=== PATIENT | female | born 1970 | race Caucasian/White ===

== ENCOUNTER 2017-09-18 17:20 | Inpatient (IN) | payer BC, MEDICAID ==
[2017-09-18 18:24] LABS: ABS Basophils 0.1 10^3/ul (0-0.2); ABS Eosinophils 0.2 10^3/ul (0-0.6); ABS Lymphocytes 1.7 10^3/ul (1.0-4.8); ABS Monocytes 0.6 10^3/ul (0-0.8); ABS Neutrophils 6.3 10^3/ul (1.5-7.7); ABS Nucleated RBC 0 10^3/ul; Eosinophil % 1.9 % (0-6); Hematocrit 40 % (35-47); Hemoglobin 13.1 g/dl (12.0-16.0); Lymphocyte % 19.5 % (25-47); Mean Corpuscular HGB Conc 33 g/dl (31-36); Mean Corpuscular Hemoglobin 29 pg (27-31); Mean Corpuscular Volume 91 fL (80-97); Mean Platelet Volume 9.4 um3 (7.4-10.4); Nucleated Red Blood Cells % 0.1; Platelet Count 303 10^3/ul (150-450); Red Blood Count 4.47 10^6/ul (4.00-5.40); Red Cell Distribution Width 14 % (10.5-15); White Blood Count 8.8 10^3/ul (3.5-10.8)
[2017-09-18 18:25] LABS: EGFR Non-African American 55.6 (>60)
[2017-09-18 18:54] LABS: Urine Appearance Clear; Urine Blood Negative (Negative); Urine Color Yellow; Urine Ketones Negative (Negative); Urine Protein Negative (Negative); Urine Specific Gravity 1.011 (1.010-1.030); Urine Urobilinogen Negative (Negative)
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
--- NOTE | 2017-09-19 03:52 | ED ---
Progress - Progress Note Progress Note: Pt is admitted to [facility] for depression. Dr. Borja accepts pt for admission. Course/Dx - Diagnoses Provider Diagnoses: Depression Discharge - Sign-Out/Discharge Documenting (check all that apply): Patient Departure - Admit, Sign-Out Patient Signing out patient TO: Ramsey Borja - Discharge Plan Condition: Stable Disposition: ADMITTED TO [facility] Referrals: Phu Rivers MD [Primary Care Provider] -
[2017-09-19] MEDS ORDERED: Al Hydrox/Mg Hydrox/Simet LIQ* 30 ML UDC PO PRN (06:06)
[2017-09-19] MEDS ORDERED: Acetaminophen TAB* 325 MG PO PRN (06:06)
[2017-09-19] MEDS: clonazePAM TAB(*) 1 MG PO SCH ×3 (08:46→21:59)
[2017-09-19] MEDS: FLUoxetine CAP* 20 MG PO SCH (08:46)
[2017-09-19] MEDS: Lithium Carbonate ER* 450 MG TAB.ER PO SCH ×2 (08:46→21:59)
[2017-09-19] MEDS: Vitamin THERAPEUTIC TAB PO SCH (08:46)
--- NOTE | 2017-09-19 09:29 | PN ---
ED Flex Patient Progress Note Date of Service: 09/18/17 Subjective: This is a 46 year-old F who is pending admission to [facility] Unit / transfer to another psychiatric facility / discharge to home / or being observed secondary to SI. Pt. examined in room F3 around 0830. She is sleeping comfortably. Objective: Vitals: Most recent vital signs documented below. Laboratory: Current laboratory results documented below. Assessment: Pending admit Plan: Pending psychiatric or medical consultation to observe / transfer / admit / discharge will follow up daily . Vital Signs Temp Pulse Resp BP Pulse Ox 98.2 F 59 16 108/72 100 09/19/17 08:10 09/19/17 08:10 09/19/17 08:10 09/19/17 08:10 09/19/17 08:10 Lab Results - Entire Visit 09/18/17 09/18/17 09/18/17 18:43 18:43 18:03 WBC RBC Hgb Hct MCV MCH MCHC RDW Plt Count MPV Neut % (Auto) Lymph % (Auto) [place] % (Auto) Eos % (Auto) Baso % (Auto) Absolute Neuts (auto) Absolute Lymphs (auto) Absolute Monos (auto) Absolute Eos (auto) Absolute Basos (auto) Absolute Nucleated RBC Nucleated RBC % Sodium 135 Potassium 4.3 Chloride 102 Carbon Dioxide 26 Anion Gap 7 BUN 15 Creatinine 1.06 H Est GFR ( Amer) 67.2 Est GFR (Non-Af Amer) 55.6 BUN/Creatinine Ratio 14.2 Glucose 93 Calcium 9.3 Total Bilirubin 0.50 AST 16 ALT 14 Alkaline Phosphatase 78 Total Protein 6.9 Albumin 4.1 Globulin 2.8 Albumin/Globulin Ratio 1.5 TSH 3.92 Urine Color Yellow Urine Appearance Clear Urine pH 7.0 Ur Specific [place] 1.011 Urine Protein Negative Urine Ketones Negative Urine Blood Negative Urine Nitrate Negative Urine Bilirubin Negative Urine Urobilinogen Negative Ur Leukocyte Esterase Negative Urine Glucose Negative Urine Ascorbic Acid * A Salicylates < 2.50 Urine Opiates Screen None detected Acetaminophen < 15 Ur Barbiturates Screen None detected Ur Phencyclidine Scrn None detected Ur Amphetamines Screen None detected U Benzodiazepines Scrn None detected Urine Cocaine Screen None detected U Cannabinoids Screen Presumptive positive A Serum Alcohol < 10 09/18/17 18:03 WBC 8.8 RBC 4.47 Hgb 13.1 Hct 40 MCV 91 MCH 29 MCHC 33 RDW 14 Plt Count 303 MPV 9.4 Neut % (Auto) 71.5 Lymph % (Auto) 19.5 L [place] % (Auto) 6.5 Eos % (Auto) 1.9 Baso % (Auto) 0.6 Absolute Neuts (auto) 6.3 Absolute Lymphs (auto) 1.7 Absolute Monos (auto) 0.6 Absolute Eos (auto) 0.2 Absolute Basos (auto) 0.1 Absolute Nucleated RBC 0 Nucleated RBC % 0.1 Sodium Potassium Chloride Carbon Dioxide Anion Gap BUN Creatinine Est GFR ( Amer) Est GFR (Non-Af Amer) BUN/Creatinine Ratio Glucose Calcium Total Bilirubin AST ALT Alkaline Phosphatase Total Protein Albumin Globulin Albumin/Globulin Ratio TSH Urine Color Urine Appearance Urine pH Ur Specific [place] Urine Protein Urine Ketones Urine Blood Urine Nitrate Urine Bilirubin Urine Urobilinogen Ur Leukocyte Esterase Urine Glucose Urine Ascorbic Acid Salicylates Urine Opiates Screen Acetaminophen Ur Barbiturates Screen Ur Phencyclidine Scrn Ur Amphetamines Screen U Benzodiazepines Scrn Urine Cocaine Screen U Cannabinoids Screen Serum Alcohol
[2017-09-20] MEDS: clonazePAM TAB(*) 1 MG PO SCH ×3 (08:52→21:33)
[2017-09-20] MEDS: Lithium Carbonate ER* 450 MG TAB.ER PO SCH ×2 (08:52→21:33)
[2017-09-20] MEDS: Vitamin THERAPEUTIC TAB PO SCH (08:52)
[2017-09-20] MEDS: FLUoxetine CAP* 20 MG PO SCH (08:52)
--- NOTE | 2017-09-20 11:01 | PN ---
MHU: Group Therapy Note - Service Type Service Type: [id number] Group Psychotherapy - Cognitive Behavioral Group Therapy ( CBT):Patient was attentive and participatory in CBT programming this morning, and remained in good behavioral control. Patient expressed positive insights regarding relevant treatment interventions and goals.
[2017-09-21] MEDS: Vitamin THERAPEUTIC TAB PO SCH (09:05)
[2017-09-21] MEDS: FLUoxetine CAP* 20 MG PO SCH (09:05)
[2017-09-21] MEDS: Lithium Carbonate ER* 450 MG TAB.ER PO SCH ×2 (09:05→21:02)
[2017-09-21] MEDS: clonazePAM TAB(*) 1 MG PO SCH ×3 (09:06→21:06)
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
--- NOTE | 2017-09-21 16:51 | PN ---
Subjective - Subjective Date of Service: 09/21/17 Service Type: [id number] Hosp care 15 min low complexity Subjective: Miriam spoke about wanting to leave and feeling better today than she did yesterday. She is hopeful and would like to be out of the hospital in time to keep her appointment with her new 3-week job. She is feeling comfortable in her relationship with her ex- and would like to him again. We discussed drinking alcohol and using Klonopin and she agrees not to use Klonopin if she plans on drinking. Objective - Appearance Appearance: Well Developed/Nourished, Healthy Appearing Dysmorphic Features: No Hygiene: Normal Grooming: Well Kept - Behavior Psychomotor Activities: Normal Exhibits Abnormal Movement: No - Attitude and Relatedness Attitude and Relatedness: Cooperative Eye Contact: Good - Speech Quality: Unpressured Latencies: Normal Quantity: Appropriate - Mood Patient's Decription of Mood: "Good" - Affect Observed Affect: Good Affect Consistent with: Euthymia - Thought Process Patient's Thought Process: Coherent Thought Content: Yes Passive Wish, No Suicidal Planning, No Homicidal Ideation, No Paranoid Ideation - Sensorium Experiencing Hallucinations: No, Sensorium is Clear Type of Hallucinations: Visual: No, Auditory: No, Command: No - Level of Consciousness Level of Consciousness: Alert Orientation: Yes Intact, Yes Orientated to Time, Yes Orientated to Place, Yes Orientated to Person - Impulse Control Impulse Control: Intact - Insight and Judgement Insight and Judgement: Good - Group Participation Particating in Group Activities: Yes - Medication Management Medication Management Adherence: Yes - Additional Observations Comments: Miriam is participating in groups and taking medications as prescribed. she is taking good care of herself, in fact being a little sad that she doesn't have the hair products that she usually uses. She reports being tired, perhaps due to the Klonopin she is taking. Assessment - Assessment Merits Inpatient Hospitalization: For Immediate Safety, For Stabilization Inpatient DSM-V Dx: F31.9 Clinical Impression: Miriam is a 46-y.o. woman with bipolar disorder who is brought here by police after they broke down her door following her being asleep in bed with the fans running and her not being able to hear the door. She had taken Klonopin and an alcoholic drink and was not easily roused. At this time, she asserts she was not trying to suicide. She is consistent in this story and also is forward thinking. Plan - Plan Treatment Plan: Name: MIRIAM LEDEZMA Birthdate: 1970 [id number] Medications: Current Medications Acetaminophen (Tylenol Tab*) 650 mg PO Q4H PRN PRN Reason: PAIN or TEMP > 101 F Al Hydrox/Mg Hydrox/Simethicone (Maalox Plus*) 30 ml PO Q4H PRN PRN Reason: INDIGESTION Clonazepam (Klonopin Tab(*)) 0.5 mg PO TID [facility] Last Admin: 09/21/17 14:19 Dose: Not Given Fluoxetine HCl (Prozac Cap*) 20 mg PO DAILY [facility] Last Admin: 09/21/17 09:05 Dose: 20 mg [place] Carbonate ([place] Carbonate Er Tab*) 450 mg PO BID [facility] Last Admin: 09/21/17 09:05 Dose: 450 mg Multivitamins (Theragran Tab*) 1 tab PO DAILY [facility] Last Admin: 09/21/17 09:05 Dose: 1 tab - Discharge Plan Discharge Plan: Outpatient Follow Up Outpatient Program: Private Clinician(s) Additional Comments: Miriam agrees to reduce her Klonopin dose to 0.5 mg TID with an eye toward reducing or eliminating it in the future. She is also agreeable to following her plans with work and the Advocacy Center.
--- NOTE | 2017-09-21 16:56 | PN ---
MHU: Group Therapy Note - Service Type Service Type: [id number] Group Psychotherapy - Group Participation Patient Participating in Group: Yes Level of Group Participation: Attentive, Spontaneously Participate Relatedness to Group: Well Related - Appearance Appearance: Healthy Appearing Hygiene: Normal Grooming: Well Kept - Behavior Psychomotor Activities: Normal Exhibits Abnormal Movement: No - Attitude and Relatedness Attitude and Relatedness: Appropriate Eye Contact: Good - Speech Quality: Unpressured Latencies: Normal Quantity: Appropriate - Additional Group Comments Group Comments: Fouzia participated appropriately. She is doing well in group and demonstrated adequate understanding. She appeared to enjoy the group and made good eye contact.
[2017-09-22] MEDS: FLUoxetine CAP* 20 MG PO SCH (09:02)
[2017-09-22] MEDS: Vitamin THERAPEUTIC TAB PO SCH (09:02)
[2017-09-22] MEDS: Lithium Carbonate ER* 450 MG TAB.ER PO SCH (09:02)
[2017-09-22 09:03] VITALS: BP 117/66
[2017-09-22] MEDS: clonazePAM TAB(*) 1 MG PO SCH (09:03)
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
== END 2017-09-22 11:10 | disposition home or self-care (01) | DRG 753 ==
LOC: ED 17:20 → BSU 09-19 03:45
PROVIDERS: ADMIT Psychiatry & Neurology Psychiatry; ATTEND Psychiatry & Neurology Psychiatry
PROC: GZHZZZZ Group Psychotherapy (ICD-10-PCS; principal; 2017-09-19)
DX: F31.9 Bipolar disorder, unspecified (principal); F50.2 Bulimia nervosa; F60.3 Borderline personality disorder; F43.10 Post-traumatic stress disorder, unspecified; F41.0 Panic disorder [episodic paroxysmal anxiety]; Z91.5 Personal history of self-harm; Z91.410 Personal history of adult physical and sexual abuse; Z88.0 Allergy status to penicillin; Z81.8 Family history of other mental and behavioral disorders
CPT/HCPCS: 36415; 80053; 80307; 80320; 80329; 81003; 84443; 85025; 90853; 99222; 99231; 99238; 99284; A9270-GY; G0480

== ENCOUNTER 2017-11-29 11:03 | Emergency (ER) | payer OTHER ==
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
[2017-11-29 11:51] LABS: Urine Appearance Cloudy; Urine Blood 1+ (Negative); Urine Color Yellow; Urine Ketones Negative (Negative); Urine Protein Negative (Negative); Urine Red Blood Cell Trace(0-2/hpf) (Absent); Urine Specific Gravity 1.011 (1.010-1.030); Urine Urobilinogen Negative (Negative); Urine White Blood Cell Trace(0-5/hpf) (Absent)
[2017-11-29 12:11] LABS: ABS Basophils 0.1 10^3/ul (0-0.2); ABS Eosinophils 0.1 10^3/ul (0-0.6); ABS Monocytes 0.5 10^3/ul (0-0.8); ABS Neutrophils 4.4 10^3/ul (1.5-7.7); ABS Nucleated RBC 0 10^3/ul; Eosinophil % 1.1 % (0-6); Hematocrit 39 % (35-47); Lymphocyte % 28.9 % (25-47); Mean Corpuscular HGB Conc 34 g/dl (31-36); Mean Corpuscular Hemoglobin 30 pg (27-31); Mean Corpuscular Volume 90 fL (80-97); Mean Platelet Volume 9.4 um3 (7.4-10.4); Nucleated Red Blood Cells % 0.1; Platelet Count 240 10^3/ul (150-450); Red Cell Distribution Width 15 % (10.5-15)
[2017-11-29 12:17] LABS: EGFR Non-African American 77.7 (>60)
[2017-11-29 14:38] VITALS: BP 132/82
== END 2017-11-29 14:37 | disposition home or self-care (01) ==
LOC: ED 11:03
DX: F32.9 Major depressive disorder, single episode, unspecified (principal); Z88.0 Allergy status to penicillin
CPT/HCPCS: 36415; 80053; 80307; 80320; 80329; 81003; 81015; 84443; 84702; 85025; 87086; 99284; G0480

== ENCOUNTER 2019-08-22 12:58 | Inpatient (IN) ==
[2019-08-22] MEDS ORDERED: NS 0.9% 1000 ml BAG 1,000 ML IV ONE (13:08)
[2019-08-22 14:02] LABS: Urine Appearance Clear; Urine Bilirubin Negative (Negative); Urine Blood 2+ (Negative); Urine Color Straw; Urine Glucose Negative (Negative); Urine Ketones Negative (Negative); Urine Nitrite Negative (Negative); Urine Protein Negative (Negative); Urine Specific Gravity 1.003 (1.010-1.030); Urine Urobilinogen Negative (Negative)
[2019-08-22 14:09] LABS: Urine Bacteria 1+ (Absent); Urine Red Blood Cell Trace(0-2/hpf) (Absent); Urine Squamous Epithelial Cell Present (Absent); Urine White Blood Cell Absent (Absent)
[2019-08-22 14:11] LABS: Urine Benzodiazepine Screen Presumptive Positive (None Detect); Urine Opiates Screen None Detected (None Detect)
[2019-08-22 14:19] LABS: ABS Basophils 0.1 10^3/ul (0-0.2); ABS Eosinophils 0.1 10^3/ul (0-0.6); ABS Lymphocytes 1.7 10^3/ul (1.0-4.8); ABS Monocytes 0.4 10^3/ul (0-0.8); Eosinophil % 1.2 %; Hematocrit 29 % (35-47); Hemoglobin 9.2 g/dL (12.0-16.0); Lymphocyte % 32.8 %; Mean Corpuscular HGB Conc 32 g/dL (31-36); Mean Corpuscular Hemoglobin 23 pg (27-31); Mean Corpuscular Volume 73 fL (80-97); Mean Platelet Volume 9.4 fL (7.4-10.4); Nucleated Red Blood Cells % 0.1; Platelet Count 294 10^3/uL (150-450); Red Blood Count 3.96 10^6 /uL (3.70-4.87); Red Cell Distribution Width 19 % (10-15); White Blood Count 5.1 10^3/uL (3.5-10.8)
[2019-08-22 14:36] LABS: Acetaminophen < 15 mcg/mL; Alcohol, S 89 mg/dL (<10); Salicylate < 2.50 mg/dL (<30)
[2019-08-22 14:43] LABS: TSH (Thyroid Stimulating Horm) 1.17 mcIU/mL (0.34-5.60)
[2019-08-22 15:25] LABS: Albumin 4.3 g/dL (3.2-5.2); Albumin/Globulin Ratio 1.8 (1-3); Anion Gap 8 mmol/L (2-11); BUN/Creatinine Ratio 12.8 (8-20); Blood Urea Nitrogen 10 mg/dL (6-24); CO2 Carbon Dioxide 20 mmol/L (22-32); Calcium 8.7 mg/dL (8.6-10.3); Chloride 109 mmol/L (101-111); EGFR Non-African American 78.5 (>60); Globulin 2.4 g/dL (2-4); Glucose 93 mg/dL (70-100); Potassium 4.1 mmol/L (3.5-5.0); Sodium 137 mmol/L (135-145); Total Protein 6.7 g/dL (6.4-8.9)
[2019-08-22 15:26] LABS: ALT 8 U/L (7-52); AST 14 U/L (13-39); Alkaline Phosphatase 90 U/L (34-104)
[2019-08-22] MEDS ORDERED: Al Hydrox/Mg Hydrox/Simet LIQ 30 ML UDC PO PRN (16:24)
[2019-08-22 22:19] LABS: BUN/Creatinine Ratio 11.1 (8-20); Calcium 8.7 mg/dL (8.6-10.3); EGFR African American 72.1 (>60); EGFR Non-African American 59.6 (>60)
[2019-08-23 08:18] LABS: HDL Cholesterol 61.7 mg/dL
[2019-08-23] MEDS: Vitamin THERAPEUTIC TAB PO SCH (10:37)
[2019-08-23] MEDS: CARIPRAZINE 1.5 MG PO SCH (10:38)
[2019-08-23] MEDS ORDERED: LORazepam 1 mg TAB (*) PO SCH (16:00)
[2019-08-23] MEDS: clonazePAM 1 mg TAB(*) PO PRN (20:28)
[2019-08-24] MEDS: Vitamin THERAPEUTIC TAB PO SCH (11:09)
[2019-08-24] MEDS: CARIPRAZINE 1.5 MG PO SCH (11:10)
[2019-08-24] MEDS: clonazePAM 1 mg TAB(*) PO PRN (21:28)
[2019-08-25] MEDS: Vitamin THERAPEUTIC TAB PO SCH (09:14)
[2019-08-25] MEDS: CARIPRAZINE 1.5 MG PO SCH (09:15)
[2019-08-25] MEDS: clonazePAM 1 mg TAB(*) PO PRN (20:46)
[2019-08-26] MEDS: Vitamin THERAPEUTIC TAB PO SCH (09:33)
[2019-08-26] MEDS: CARIPRAZINE 1.5 MG PO SCH (09:33)
[2019-08-26] MEDS: clonazePAM 1 mg TAB(*) PO PRN (20:32)
[2019-08-27] MEDS: Vitamin THERAPEUTIC TAB PO SCH (12:00)
[2019-08-27] MEDS: CARIPRAZINE 1.5 MG PO SCH (12:01)
[2019-08-27 17:10] LABS: ABS Basophils 0.1 10^3/ul (0-0.2); ABS Eosinophils 0.1 10^3/ul (0-0.6); ABS Lymphocytes 2.3 10^3/ul (1.0-4.8); ABS Monocytes 0.5 10^3/ul (0-0.8); Eosinophil % 1.2 %; Hematocrit 30 % (35-47); Hemoglobin 9.6 g/dL (12.0-16.0); Luteinizing Hormone 9.6 mIU/mL; Lymphocyte % 35.5 %; Mean Corpuscular HGB Conc 32 g/dL (31-36); Mean Corpuscular Hemoglobin 24 pg (27-31); Mean Corpuscular Volume 74 fL (80-97); Mean Platelet Volume 10.1 fL (7.4-10.4); Platelet Count 297 10^3/uL (150-450); Red Blood Count 4.06 10^6 /uL (3.70-4.87); Red Cell Distribution Width 20 % (10-15); White Blood Count 6.5 10^3/uL (3.5-10.8)
[2019-08-27] MEDS: clonazePAM 1 mg TAB(*) PO PRN (20:45)
[2019-08-28 09:10] VITALS: BP 113/57
[2019-08-28] MEDS: CARIPRAZINE 1.5 MG PO SCH (09:52)
[2019-08-28] MEDS: Vitamin THERAPEUTIC TAB PO SCH (09:53)
== END 2019-08-28 15:55 | disposition home or self-care (01) | DRG 885 ==
LOC: ED 12:58 → BSU 16:25
PROVIDERS: ADMIT Psychiatry & Neurology Psychiatry; ATTEND Psychiatry & Neurology Psychiatry

== ENCOUNTER 2019-12-12 18:39 | Inpatient (IN) ==
[2019-12-12 19:49] LABS: Urine Benzodiazepine Screen None Detected (None Detect); Urine Cannabinoids Screen None Detected (None Detect); Urine Opiates Screen None Detected (None Detect)
[2019-12-12 19:52] LABS: ABS Basophils 0.1 10^3/ul (0-0.2); ABS Eosinophils 0.1 10^3/ul (0-0.6); ABS Lymphocytes 2.1 10^3/ul (1.0-4.8); ABS Monocytes 0.5 10^3/ul (0-0.8); ABS Neutrophils 3.1 10^3/ul (1.5-7.7); Hematocrit 31 % (35-47); Hemoglobin 9.7 g/dL (12.0-16.0); Lymphocyte % 36.5 %; Mean Corpuscular HGB Conc 31 g/dL (31-36); Mean Corpuscular Hemoglobin 22 pg (27-31); Mean Corpuscular Volume 71 fL (80-97); Mean Platelet Volume 9.5 fL (7.4-10.4); Platelet Count 283 10^3/uL (150-450); Red Blood Count 4.44 10^6 /uL (3.70-4.87); Red Cell Distribution Width 20 % (10-15); White Blood Count 5.8 10^3/uL (3.5-10.8)
[2019-12-12 19:56] LABS: ALT 14 U/L (7-52); AST 19 U/L (13-39); Albumin 4.5 g/dL (3.2-5.2); Albumin/Globulin Ratio 1.7 (1-3); Alkaline Phosphatase 85 U/L (34-104); Anion Gap 10 mmol/L (2-11); BUN/Creatinine Ratio 11.4 (8-20); Blood Urea Nitrogen 9 mg/dL (6-24); CO2 Carbon Dioxide 23 mmol/L (22-32); Calcium 9.3 mg/dL (8.6-10.3); Chloride 104 mmol/L (101-111); EGFR African American 93.2 (>60); Globulin 2.7 g/dL (2-4); Glucose 88 mg/dL (70-100); Sodium 137 mmol/L (135-145); Total Protein 7.2 g/dL (6.4-8.9)
[2019-12-12 20:05] LABS: Urine Appearance Cloudy; Urine Bilirubin Negative (Negative); Urine Blood 1+ (Negative); Urine Color Colorless; Urine Glucose Negative (Negative); Urine Ketones Negative (Negative); Urine Nitrite Negative (Negative); Urine Protein Negative (Negative); Urine Specific Gravity 1.002 (1.010-1.030); Urine Urobilinogen Negative (Negative)
[2019-12-12 20:16] LABS: Acetaminophen < 15 mcg/mL; Alcohol, S 144 mg/dL (<10); Salicylate < 2.50 mg/dL (<30)
[2019-12-12 20:18] LABS: Urine Bacteria 3+ (Absent); Urine Red Blood Cell Trace(0-2/hpf) (Absent); Urine Squamous Epithelial Cell Present (Absent); Urine White Blood Cell Trace(0-5/hpf) (Absent)
[2019-12-12 20:28] LABS: TSH Ultra Thyroid Stim Horm 1.78 mcIU/mL (0.34-5.60)
[2019-12-13] MEDS ORDERED: Al Hydrox/Mg Hydrox/Simet LIQ 30 ML UDC PO PRN (07:40)
[2019-12-13] MEDS ORDERED: CARIPRAZINE 1.5 MG PO SCH (09:00)
[2019-12-13] MEDS: Vitamin THERAPEUTIC TAB PO SCH (11:06)
[2019-12-13] MEDS: CMCS - OMEGA-3 FATTY ACID 1000 mg(NF) PO SCH (16:44)
[2019-12-14] MEDS: CMCS - OMEGA-3 FATTY ACID 1000 mg(NF) PO SCH (07:33)
[2019-12-14] MEDS: Vitamin THERAPEUTIC TAB PO SCH (07:33)
[2019-12-14 08:48] LABS: Amylase 22 U/L (29-103)
[2019-12-14 08:54] LABS: Cholesterol 221 mg/dL; HDL Cholesterol 66.3 mg/dL; LDL Cholesterol 134 mg/dL; Lipase < 10 U/L (11.0-82.0); Triglycerides 103 mg/dL
[2019-12-14] MEDS ORDERED: Influenza VAC *QUAD* 2020-21* 0.5 ML SYRINGE IM ONE (09:00)
[2019-12-15] MEDS: CMCS - OMEGA-3 FATTY ACID 1000 mg(NF) PO SCH (08:10)
[2019-12-15] MEDS: Vitamin THERAPEUTIC TAB PO SCH (08:32)
[2019-12-16] MEDS: Vitamin THERAPEUTIC TAB PO SCH (08:53)
[2019-12-16] MEDS: CMCS - OMEGA-3 FATTY ACID 1000 mg(NF) PO SCH (08:54)
[2019-12-17 07:55] VITALS: BP 97/60
[2019-12-17] MEDS: Vitamin THERAPEUTIC TAB PO SCH (09:05)
[2019-12-17] MEDS: CMCS - OMEGA-3 FATTY ACID 1000 mg(NF) PO SCH (09:05)
== END 2019-12-17 14:15 | disposition home or self-care (01) | DRG 885 ==
LOC: ED 18:39 → BSU 12-13 07:40
PROVIDERS: ADMIT Psychiatry & Neurology Psychiatry; ATTEND Psychiatry & Neurology Psychiatry

== ENCOUNTER 2023-06-17 18:17 | Inpatient (IN) ==
[2023-06-17 19:36] LABS: Urine Appearance Clear; Urine Bilirubin Negative (Negative); Urine Blood Negative (Negative); Urine Color Colorless; Urine Glucose Negative (Negative); Urine Ketones Negative (Negative); Urine Nitrite Negative (Negative); Urine Protein Negative (Negative); Urine Specific Gravity 1.004 (1.002-1.030); Urine Urobilinogen Negative (Negative)
[2023-06-17 19:38] LABS: Urine Bacteria 1+ /HPF (Absent); Urine Red Blood Cell Trace(0-2/hpf) /HPF (0-Trace); Urine Squamous Epithelial Cell Present /HPF (Absent); Urine White Blood Cell 1+(6-10/hpf) /HPF (0-Trace)
[2023-06-17] MEDS: NS 0.9% 1000 ml BAG 1,000 ML IV ONE (19:52)
[2023-06-17 20:01] LABS: Urine Benzodiazepine Screen None Detected (None Detect); Urine Cannabinoids Screen None Detected (None Detect); Urine Opiates Screen None Detected (None Detect)
[2023-06-17 20:19] LABS: ABS Lymphocytes 1.7 10^3/uL (1.0-4.8); ABS Monocytes 0.4 10^3/uL (0.0-0.9); ABS Neutrophils 4.3 10^3/uL (1.5-7.6); ABS Nucleated RBC 0.01 10^3/ul; Eosinophil % 0.3 %; Hematocrit 43.6 % (35-45); Hemoglobin 14.7 g/dL (11.5-14.3); Lymphocyte % 25.9 %; Mean Corpuscular Hemoglobin 29.9 pg (27-33); Mean Corpuscular Hgb Conc 33.7 g/dL (31-36); Mean Corpuscular Volume 88.7 fL (80-97); Mean Platelet Volume 9.3 fL (7.5-11.2); Nucleated Red Blood Cells % 0.2 %/100WBC (0.0-0.8); Platelet Count 256 10^3/uL (150-450); Red Blood Count 4.92 10^6/uL (3.63-4.92); Red Cell Distribution Width 14.8 % (12-17); White Blood Count 6.4 10^3/uL (3.8-11.8)
[2023-06-17 20:55] LABS: ALT 16 U/L (7-52); AST 20 U/L (13-39); Acetaminophen < 15 mcg/mL; Albumin 4.6 g/dL (3.2-5.2); Albumin/Globulin Ratio 1.8 (1-3); Alcohol, S 171 mg/dL (<13); Alkaline Phosphatase 94 U/L (35-149); Anion Gap 10 mmol/L (2-16); Blood Urea Nitrogen 13 mg/dL (6-24); CO2 Carbon Dioxide 25 mmol/L (22-32); Chloride 101 mmol/L (101-111); Creatinine, Serum 0.86 mg/dL (0.51-0.95); Globulin 2.5 g/dL (2-4); Glucose 79 mg/dL (70-100); Potassium 3.8 mmol/L (3.5-5.0); Salicylate < 2.50 mg/dL (<30); Sodium 136 mmol/L (135-145); Total Bilirubin 0.3 mg/dL (0.2-1.0); Total Protein 7.1 g/dL (6.4-8.9); eGFR CKD-EPI 80.7 (>60)
[2023-06-18] MEDS ORDERED: Al Hydrox/Mg Hydrox/Simet LIQ 30 ML UDC PO PRN (18:27)
[2023-06-18] MEDS: Thiamine 100 MG/ML 2 ml VIAL (200 mg) IM ONE (21:25)
[2023-06-19 08:33] LABS: HDL Cholesterol 61.2 mg/dL
[2023-06-19] MEDS: Vitamin THERAPEUTIC TAB PO SCH (09:19)
[2023-07-05 08:50] VITALS: BP 103/64
== END 2023-07-05 16:05 | disposition home or self-care (01) | DRG 918 ==
LOC: ED 18:17 → EDHOLD 06-18 17:35 → BSU 06-18 18:03
PROVIDERS: ADMIT Psychiatry & Neurology Psychiatry; ATTEND Psychiatry & Neurology Psychiatry